=== PATIENT | female | born 2000 | race Caucasian/White ===

== ENCOUNTER 2024-03-04 15:03 | Inpatient (IN) | payer MEDICAID ==
[2024-03-04] MEDS ORDERED: Sodium Chloride 0.9% 2.5 ML Syringe FLUSH PRN (16:10)
[2024-03-04] MEDS ORDERED: Sodium Chloride 0.9% 20 ML SDV IV PRN (16:10)
[2024-03-04] MEDS ORDERED: Lactated Ringers 1,000 ML IV SCH (16:15)
[2024-03-04] MEDS ORDERED: Oxytocin/0.9 % Sodium Chloride 30 UNIT/500 ML BAG IV SCH (16:15)
[2024-03-04] MEDS ORDERED: Lidocaine 2% 5 ML SDV ONE (19:34)
[2024-03-04] MEDS: Lactated Ringers 1,000 ML IV SCH (19:48)
[2024-03-04 20:05] LABS: BASOPHILS ABSOLUTE AUTO 0.03 K/uL (0.00-0.20); BASOPHILS PERCENT AUTO 0.2 % (0.0-1.0); EOSINOPHILS ABSOLUTE AUTO 0.05 K/uL (0.00-0.45); EOSINOPHILS PERCENT AUTO 0.4 % (0.0-6.0); HEMATOCRIT 36.9 % (37.0-47.0); HEMOGLOBIN 12.8 g/dL (12.0-16.0); IMMATURE GRAN ABSOLUTE AUTO 0.05 K/uL (0.00-0.05); IMMATURE GRAN PERCENT AUTO 0.4 % (0.0-0.4); LYMPHOCYTES ABSOLUTE AUTO 1.79 K/uL (1.00-4.80); LYMPHOCYTES PERCENT AUTO 13.1 % (24.0-44.0); MEAN CORPUSCULAR HEMOGLOBIN 30.8 pg (28.0-32.0); MEAN CORPUSCULAR HGB CONC 34.7 g/dL (32.0-36.0); MEAN CORPUSCULAR VOLUME 88.9 fL (83.0-99.0); MEAN PLATELET VOLUME 10.1 fL (9.4-12.3); MONOCYTES ABSOLUTE AUTO 0.73 K/uL (0.00-0.80); MONOCYTES PERCENT AUTO 5.3 % (0.0-8.0); NEUTROPHILS ABSOLUTE AUTO 11.06 K/uL (1.80-7.70); NEUTROPHILS PERCENT AUTO 80.6 % (41.0-71.0); PLATELET COUNT,PLT 331 K/uL (150-400); RED BLOOD CELL COUNT 4.15 M/uL (4.10-5.30); WHITE BLOOD CELL COUNT,WBC 13.71 K/uL (3.9-11.3)
[2024-03-04] MEDS ORDERED: Ondansetron 4 MG/2 ML SDV ONE (20:10)
[2024-03-04] MEDS ORDERED: Ropivacaine 0.5% 5 MG/ML 30 ML SDV ONE (20:10)
[2024-03-04] MEDS ORDERED: Bupivacaine 0.25% 30 ML SDV ONE (20:10)
[2024-03-04] MEDS ORDERED: Ketorolac 30 MG/ML SDV ONE (20:10)
[2024-03-04] MEDS ORDERED: ceFAZolin 1 GM Vial ONE (20:10)
[2024-03-04] MEDS ORDERED: EPINEPHrine 1 MG/1 ML Amp ONE (20:10)
[2024-03-04] MEDS ORDERED: Oxytocin 10 Units/1 ML SDV ONE (20:10)
[2024-03-04] MEDS ORDERED: Morphine PF 10 MG/10 ML SDV ONE (20:11)
[2024-03-04] MEDS ORDERED: fentaNYL 100 MCG/2 ML SDV ONE (20:11)
[2024-03-04] MEDS ORDERED: Phenylephrine HCl In 0.9% NaCl 1 MG/10 ML Syringe ONE (20:41)
[2024-03-04] MEDS: ceFAZolin 2 GM in Sodium Chloride 0.9% 50 ML IV ONE (20:45)
[2024-03-04] MEDS: Ketorolac 30 MG/ML SDV IVPUSH SCH (21:20)
[2024-03-04 21:51] LABS: PH,UMBILICAL ARTERIAL 7.247 (7.18-7.38); PH,UMBILICAL VENOUS 7.299 (7.25-7.45)
[2024-03-04] MEDS ORDERED: Methylergonovine 0.2 MG/1 ML Amp IM PRN (21:55)
[2024-03-04] MEDS ORDERED: Bisacodyl 10 MG Supp RECTAL PRN (21:55)
[2024-03-04] MEDS ORDERED: Acetaminophen/oxyCODONE 325-5 MG Tab PO PRN ×2 (21:55→22:05)
[2024-03-04] MEDS ORDERED: Misoprostol 200 MCG Tab RECTAL PRN (21:55)
[2024-03-04] MEDS ORDERED: diphenhydrAMINE 50 MG/ML SDV IVPUSH PRN ×2 (21:55→22:05)
[2024-03-04] MEDS ORDERED: Oxytocin 10 Units/1 ML SDV IM PRN (21:55)
[2024-03-04] MEDS ORDERED: Ondansetron 4 MG/2 ML SDV IVPUSH PRN ×3 (21:55→22:05)
[2024-03-04] MEDS ORDERED: Calcium Carbonate 500 MG Tab.Chew PO PRN (22:00)
[2024-03-04] MEDS ORDERED: fentaNYL 50 MCG/ML SDV IVPUSH PRN (22:05)
[2024-03-04] MEDS ORDERED: Phenylephrine HCl In 0.9% NaCl 1 MG/10 ML Syringe IVPUSH PRN (22:05)
[2024-03-04] MEDS ORDERED: Naloxone 0.4 MG/ML SDV IVPUSH PRN (22:05)
[2024-03-04] MEDS ORDERED: Albuterol 0.083% 2.5 MG/3 ML Neb Soln NEB PRN (22:05)
[2024-03-04] MEDS ORDERED: fentaNYL 100 MCG/2 ML SDV IVPUSH PRN (22:05)
[2024-03-04] MEDS ORDERED: HYDROmorphone 1 MG/ML Syringe IVPUSH PRN (22:05)
[2024-03-04] MEDS ORDERED: Metoclopramide 10 MG/2 ML SDV IVPUSH PRN (22:05)
[2024-03-04] MEDS ORDERED: ePHEDrine 50 MG/ML SDV IM PRN (22:06)
[2024-03-04] MEDS: Acetaminophen 1,000 MG in Premix Bag 1 BAG IV SCH (23:37)
[2024-03-05] MEDS: Nalbuphine 10 MG/1 ML Vial IVPUSH PRN (00:15)
[2024-03-05] MEDS: Sodium Chloride 0.9% 10 ML Syringe FLUSH PRN (03:41)
[2024-03-05] MEDS: Citric Acid/Sodium Citrate Solution 30 ML Cup PO ONE (04:57)
[2024-03-05 05:18] LABS: HEMATOCRIT 32.4 % (37.0-47.0); HEMOGLOBIN 11.2 g/dL (12.0-16.0)
[2024-03-05] MEDS: Docusate Sodium 100 MG Cap PO SCH (09:34)
[2024-03-05] MEDS: Morphine 2 MG/ML SYRINGE IVPUSH PRN (19:45)
[2024-03-06] MEDS: Acetaminophen/oxyCODONE 325-5 MG Tab PO PRN (08:35)
[2024-03-06] MEDS: Ibuprofen 800 MG Tab PO PRN (10:14)
[2024-03-07] MEDS: Lanolin 100% Cream 7 GM Tube TOP PRN (16:56)
== END 2024-03-07 21:32 | disposition home or self-care (01) | DRG 788 ==
LOC: MW.OBCHECK 15:03 → MW.OB 15:03 → MW.OBCHECK 21:07 → MW.OB 21:08 → OBSVTOIN 21:34 → MW.OB 03-05 00:18
PROVIDERS: ADMIT Obstetrics & Gynecology; ATTEND Obstetrics & Gynecology
PROC: 10D00Z1 Extraction of Products of Conception, Low, Open Approach (ICD-10-PCS; principal; 2024-03-04 20:26)
DX: O36.5930 Maternal care for other known or suspected poor fetal growth, third trimester, not applicable or unspecified (principal); O76 Abnormality in fetal heart rate and rhythm complicating labor and delivery; O34.211 Maternal care for low transverse scar from previous cesarean delivery; O99.824 Streptococcus B carrier state complicating childbirth; Z3A.37 37 weeks gestation of pregnancy; Z37.0 Single live birth
CPT/HCPCS: 36415; 36430; 59025; 59514; 76819; 76819-26; 82803; 82947; 85014; 85018; 85025; 85460; 86592; 86850; 86900; 86901; A9270-GY; J0131; J0171; J0665; J0690; J1100; J1885; J2270; J2274; J2300; J2371; J2405; J2590; J2791; J2795; J3010; J3490; J7120